=== PATIENT | female | born 1930 ===

== ENCOUNTER 2017-08-25 09:31 | Emergency (ER) | payer OTHER ==
[2017-08-25] MEDS ORDERED: Tdap Vaccine 0.5 ml Vial (10-64 yrs) IM ONE ×2 (10:25→10:30)
[2017-08-25 10:39] LABS: BASO # 0.1 K/uL (0.0-0.2); BASO % 0.8 % (0.0-2.0); EOS # 0.1 K/uL (0.0-0.7); EOS % 1.2 % (0.0-4.0); HEMOGLOBIN 9.7 g/dL (11.0-16.0); LYMPH # 1.7 K/uL (1.0-4.3); LYMPH % 23.9 % (20.0-40.0); MEAN CELL VOLUME 108.6 fL (81.0-99.0); MEAN CORPUSCULAR HEMOGLOBIN 39.4 pg (27.0-31.0); MEAN CORPUSCULAR HGB CONC 36.3 g/dL (33.0-37.0); MEAN PLATELET VOLUME 6.4 fL (7.2-11.7); MONO # 0.5 K/uL (0.0-0.8); MONO % 7.5 % (0.0-10.0); NEUT # 4.8 K/uL (1.8-7.0); NEUT % 66.6 % (50.0-75.0); RBC 2.46 Mil/uL (3.80-5.20); WHITE BLOOD COUNT 7.2 K/uL (4.8-10.8)
[2017-08-25 10:52] VITALS: RESP 18
--- NOTE | 2017-08-25 11:03 | CT ---
PROCEDURE: CT HEAD WITHOUT CONTRAST. HISTORY: dizziness COMPARISON: None available. TECHNIQUE: Axial computed tomography images were obtained through the head/brain without intravenous contrast. Radiation dose: Total exam DLP = 854 mGy-cm. This CT exam was performed using one or more of the following dose reduction techniques: Automated exposure control, adjustment of the mA and/or kV according to patient size, and/or use of iterative reconstruction technique. FINDINGS: HEMORRHAGE: No intracranial hemorrhage. BRAIN: No mass effect or edema. Scattered focal lucencies in the subcortical and periventricular white matter suggestive for chronic microvascular ischemic change. . VENTRICLES: Unremarkable. No hydrocephalus. CALVARIUM: Unremarkable. PARANASAL SINUSES: Unremarkable as visualized. No significant inflammatory changes. MASTOID AIR CELLS: Unremarkable as visualized. No inflammatory changes. OTHER FINDINGS: Intracranial arterial calcifications. IMPRESSION: Chronic microvascular ischemic changes. No acute intracranial abnormality. If symptoms persists, consider further evaluation with MRI.
[2017-08-25] MEDS ORDERED: Epinephrine /Lidocaine HCL 1:100,000/2% 30 ml INJ ONE (11:15)
[2017-08-25 11:22] LABS: ALB/GLOB RATIO 1.1 (1.0-2.1); ALT/SGPT 13 U/L (9-52); AST/SGOT 23 U/L (14-36); BLOOD UREA NITROGEN 14 mg/dL (7-17); CALCIUM 8.6 mg/dl (8.6-10.4); GFR AFRICAN-AMERICAN > 60; GFR NON-AFRICAN AMERICAN > 60
--- NOTE | 2017-08-25 11:26 | C.PDOC ---
History Of Present Illness [id number] female with Hx of dementia, S/P fall in snf today, sustained laceration to right temporal scalp. No other complaints noted or signs of injuries. - HPI Time Seen by Provider: 08/25/17 10:08 Chief Complaint (Nursing): Trauma History Per: EMS History/Exam Limitations: clinical condition Onset/Duration Of Symptoms: Hrs Location Of Injury: Right: Hand (Temporal scalp) Recent travel outside of the [place]: No - Fall Fall:Prior To Injury: Slipped Past Medical History Reviewed: Historical Data, Nursing Documentation, Vital Signs Vital Signs: Last Vital Signs Temp 97.6 F 08/25/17 09:40 Pulse 63 08/25/17 10:52 Resp 18 08/25/17 10:52 BP 169/68 H 08/25/17 10:52 Pulse Ox 97 08/25/17 12:15 - Medical History PMH: Anemia, Anxiety, HTN Surgical History: No Surg Hx Family History: States: Unknown Family Hx - Social History Hx Alcohol Use: No Hx Substance Use: No - Immunization History Hx Tetanus Toxoid Vaccination: No Hx Influenza Vaccination: No Hx Pneumococcal Vaccination: No Review Of Systems Review Of Systems: ROS cannot be obtained secondary to pt's inabilty to answer questions. (Secondary to Dementia) Physical Exam - Physical Exam Appears: Non-toxic, No Acute Distress Skin: Normal Color, Warm, Dry, No Rash Head: Atraumatic, Normacephalic, Laceration (5cm temporal laceration), Other ( no gross) Eye(s): bilateral: Normal Inspection, PERRL, EOMI Nose: Normal Oral Mucosa: Moist Neck: No Step Off Deformity, Supple Chest: Symmetrical, No Tenderness Cardiovascular: Rhythm Regular, No Murmur Respiratory: No Decreased Breath Sounds, No Rales, No Rhonchi, No Wheezing Gastrointestinal/Abdominal: Soft, No Tenderness Back: No CVA Tenderness Extremity: Normal ROM, No Deformity Extremity: Bilateral: Atraumatic, Normal Color And Temperature, Normal ROM Neurological/Psych: Other (Not depressed ) ED Course And Treatment - Laboratory Results Result Diagrams: 08/25/17 10:35 08/25/17 10:35 O2 Sat by Pulse Oximetry: 97 (RA) Pulse Ox Interpretation: Normal - Other Rad CXR X-Ray: Viewed By Me, Read By Radiologist Interpretation: Chest x-ray single frontal view. History: Shortness of breath. Comparison: 08/25/2017. Findings: Mild venous congestion. Mild linear atelectasis in the right midlung zone. Mammilated right hemidiaphragm. Biapical pleural thickening with upper lobe granulomatous changes. Tortuous aorta. Mild cardiomegaly. Degenerative changes in the spine and shoulders. Impression: Mild venous congestion. Mild linear atelectasis in the right midlung zone. Mammilated right hemidiaphragm. Biapical pleural thickening with upper lobe granulomatous changes. Tortuous aorta. Mild cardiomegaly. - CT Scan/US CT Head Other Rad Studies (CT/US): Read By Radiologist, Radiology Report Reviewed CT/US Interpretation: PROCEDURE: CT HEAD WITHOUT CONTRAST. HISTORY: dizziness. COMPARISON: None available. TECHNIQUE: Axial computed tomography images were obtained through the head/brain without intravenous contrast. Radiation dose: Total exam DLP = 854 mGy-cm. This CT exam was performed using one or more of the following dose reduction techniques: Automated exposure control, adjustment of the mA and/or kV according to patient size, and/or use of iterative reconstruction technique. FINDINGS: HEMORRHAGE: No intracranial hemorrhage. BRAIN: No mass effect or edema. Scattered focal lucencies in the subcortical and periventricular white matter suggestive for chronic microvascular ischemic change. . VENTRICLES: Unremarkable. No hydrocephalus. CALVARIUM: Unremarkable. PARANASAL SINUSES: Unremarkable as visualized. No significant inflammatory changes. MASTOID AIR CELLS: Unremarkable as visualized. No inflammatory changes. OTHER FINDINGS: Intracranial arterial calcifications. IMPRESSION: Chronic microvascular ischemic changes. No acute intracranial abnormality. If symptoms persists, consider further evaluation with MRI. Laceration - Laceration Repair Right Temporal Laceration Wound Length (In cm): 5 Description Of Wound: Linear Anesthesia: Lidocaine 1% Wound Examination: Irrigated With Saline (500cc), No FB With Wound Exploration Wound Closure: Elizabet Wound Complexity: Simple (Tolerated well) Medical Decision Making Medical Decision Making: Ordered EKG, Head CT, blood work, and CXR. Impression: - Head injury s/p fall EKG: - Normal sinus rhythm at 63bpm - LAD - Normal intervals - No specific ST or T-wave changes Tetanus administered. Patient will be discharged back to snf. Diagnosis: - Head injury S/P suspected fall Disposition Counseled Patient/Family Regarding: Studies Performed, Diagnosis, Need For Followup - Disposition Referrals: Basilio Whitney MD [Staff Provider] - Disposition: TRANSF TO SNF Disposition Time: 11:59 Condition: STABLE Additional Instructions: wound check in 2 days staple removal in 10 days apply bacitracin twice daily continue snf medications return to ER if symptoms worsens or progress Instructions: Laceration Repair, Minor Head Injury (DC) Forms: [facility] (Frisian), General Discharge Instructions - Clinical Impression Clinical Impression: Concussion injury of brain, Laceration - injury - Scribe Statement The provider has reviewed the documentation as recorded by the Scribtate Garcia All medical record entries made by the Dafneibtate were at my direction and personally dictated by me. I have reviewed the chart and agree that the record accurately reflects my personal performance of the history, physical exam, medical decision making, and the department course for this patient. I have also personally directed, reviewed, and agree with the discharge instructions and disposition.
[2017-08-25] MEDS ORDERED: Bacitracin 500 Units/gm Oint Foilpak UD TOP ONE (12:01)
--- NOTE | 2017-08-25 13:27 | RAD ---
Chest x-ray single frontal view History: Shortness of breath. Comparison: 08/25/2017 Findings: Mild venous congestion. Mild linear atelectasis in the right midlung zone. Mammilated right hemidiaphragm. Biapical pleural thickening with upper lobe granulomatous changes. Tortuous aorta. Mild cardiomegaly. Degenerative changes in the spine and shoulders. Impression: Mild venous congestion. Mild linear atelectasis in the right midlung zone. Mammilated right hemidiaphragm. Biapical pleural thickening with upper lobe granulomatous changes. Tortuous aorta. Mild cardiomegaly.
[2017-08-25 14:43] VITALS: BP 155/74; PULSE 60; TEMP 98.6; O2SAT 100
[2017-08-25] MEDS ORDERED: Bacitracin 500 Units/gm Oint Foilpak UD ONE (15:18)
== END 2017-08-25 15:28 ==
LOC: C.ER 09:31
DX: S01.81XA Laceration without foreign body of other part of head, initial encounter (principal); S06.0X0A Concussion without loss of consciousness, initial encounter; W01.0XXA Fall on same level from slipping, tripping and stumbling without subsequent striking against object, initial encounter; Y92.129 Unspecified place in nursing home as the place of occurrence of the external cause